=== PATIENT | male | born 1970 | race Caucasian/White ===

== ENCOUNTER 2020-03-25 11:21 | Emergency (ER) | payer OTHER, SELFPAY ==
[2020-03-25 11:24] VITALS: BP 132/84; PULSE 90; RESP 16; TEMP 36.6; O2SAT 97; BMI 26.2
[2020-03-25 11:28] VITALS: BP 132/84; PULSE 85; RESP 16; O2SAT 97
--- NOTE | 2020-03-25 11:32 | W.ED.EYEPROB ---
HPI - Eye Problem General: Chief complaint: Eye Problems Stated complaint: PIECE OF METAL IN R EYE Time Seen by Provider: 03/25/20 11:31 Source: patient Mode of arrival: ambulatory Limitations: no limitations History of Present Illness: HPI Narrative: Patient is a nice 49-year-old male who presents to ED today with complaint of a metallic foreign body to his right eye that he sustained yesterday after grinding. Patient is UTD on his tetanus. Denies visual changes. MD chief complaint: foreign body Onset (ago): day(s) Onset description: sudden Duration: constant Location: right eye Eye Symptoms: foreign body sensation Place: home Review of Systems Eyes: Reports: eye discomfort (fb sensation ); Denies: change in vision, blurry vision, floaters or seeing flashes Physical Exam Const: COMMON NORMALS: no acute distress, average body habitus, patient oriented x3, no limitations, healthy appearing, alert and well nourished Eye: COMMON NORMALS: Equal, round and reactive pupils present, EOMs intact bilaterally, no scleral icterus and normal visual delaney by confrontation GENERAL EYE: normal light reflex VISUAL ACUITY: Yes acuity normal ALIGNMENT: Yes alignment normal PERIORBITAL: periorbital findings normal EYELID: eyelids normal CONJUNCTIVA: Yes other (injected ) SCLERA: sclerae normal CORNEA: Yes other (small metallic fb visualized ) PUPIL: Yes Equal, round and reactive pupils present DIRECT OPHTHALMOSCOPY: Yes normal light reflex Neuro: COMMON NORMALS: patient oriented x3 SENSORIUM/ORIENTATION: Yes alert Procedures FB Removal Eye Time Out performed: No Location: eye (R) Topical anesthetic used: tetracaine Foreign body: metal Evidence of corneal penetration: No Technique: irrigation, cotton tip swab and needle Procedure performed under: direct visualization with magnification Patient tolerated procedure: well and no complications Complications: incomplete foreign body removal Course Consultations: Consultation #1: Dr. Zayas-recommends sending patient to his office after DC and he will remove fb Vital Signs: Vital signs: Vital Signs Temperature 97.9 F 03/25/20 11:24 Pulse Rate 85 03/25/20 12:31 Respiratory Rate 18 03/25/20 12:31 Blood Pressure 135/91 03/25/20 12:31 Pulse Oximetry 96 03/25/20 12:31 MDM - Eye Problem MDM Narrative: Medical decision making narrative: I could not remove fb here despite attempts with irrigation, wet qtip, and needle. Given the fact that it has been in eye for 1.5 days now I think it would be best if he gets this removed by ophthalmology as they have much better instrumentation. I have spoken to Dr. Zayas who will see patient directly after his discharge. Discharge Plan Discharge Patient Disposition: Home Clinical Impression: Retained foreign body in eye Qualifiers: Laterality: right Qualified Code(s): H44.701 - Unspecified retained (old) intraocular foreign body, nonmagnetic, right eye Corneal foreign body Qualifiers: Encounter type: initial encounter Laterality: right Qualified Code(s): T15.01XA - Foreign body in cornea, right eye, initial encounter Condition: Stable Discharge Orders: Discharge ED (Routine); Ordered 03/25/20 Ordered By: Viviane Zelaya Referrals: Jin Zayas MD [Physician] - Activity Restrictions/Additional Instructions: HEAD STRAIGHT TO DR. ZAYAS' OFFICE FOR REMOVAL OF METALLIC FOREIGN BODY. Coding Level of Care Code ED Quality Analyst/Technical Writer for Akanksha Leonard
[2020-03-25 12:31] VITALS: BP 135/91; PULSE 85; RESP 18; O2SAT 96
== END 2020-03-25 12:32 | disposition home or self-care (01) ==
PROVIDERS: Emergency Provider Physician Assistant
DX: T15.01XA Foreign body in cornea, right eye, initial encounter (principal); H44.701 Unspecified retained (old) intraocular foreign body, nonmagnetic, right eye; X58.XXXA Exposure to other specified factors, initial encounter
CPT/HCPCS: 12345; 65220; 99282